=== PATIENT | female | born 1945 | race Caucasian/White ===

== ENCOUNTER 2017-12-07 19:22 | Inpatient (IN) ==
[2017-12-07] MEDS: HYDROmorphone 2 MG/ML VIAL IV PRN ×2 (20:26→20:50)
[2017-12-07 20:45] LABS: Basophils # (Auto) 0 K/mcL (0.0-0.3); Basophils % (Auto) 0.5 % (0.0-2.0); Eosinophils # (Auto) 0.7 K/mcL (0.0-0.7); Eosinophils % (Auto) 7.4 % (0.0-7.0); Lymphocytes # (Auto) 2.5 K/mcL (1.5-4.8); Lymphocytes % (Auto) 26.4 % (15.5-49.0); Mean Cell Volume 96.6 fL (80.0-100.0); Mean Corpuscular HGB Conc 34.2 g/dL (31.0-36.0); Mean Corpuscular Hemoglobin 33.1 pg (26.0-34.0); Monocytes # (Auto) 0.8 K/mcL (0.1-0.9); Monocytes % (Auto) 8.7 % (1.0-12.0); Platelet Count 341 K/mcL (140-440); RBC 3.58 M/mcL (4.00-5.20); Red Cell Distribution Width 13.5 % (11.5-14.5)
--- NOTE | 2017-12-07 20:55 | Emergency Department Note ---
Lower Extremity Injury HPI - General Chief Complaint: Extremity Injury, Lower Stated Complaint: pain in left hip Time Seen by Provider: 12/07/17 19:47 Source: patient Mode of arrival: EMS Limitations: no limitations - History of Present Illness HPI Narrative: 72-year-old female presents from shelter due to poorly controlled pain. She had an x-ray today and they saw a femoral neck fracture. She was requiring pain medication previously and has gotten fentanyl transdermal patch and is also taking morphine for breakthrough pain. She has end-stage dementia and is nonverbal. Family is unsure if they want her to have surgery. She is on Pradaxa for blood clots in her left lower extremity. She has not had any documented falls. They are here for pain control and to see if she needs surgery if that will help. The patient is moving her right leg but not her left - Related Data Home Medications Medication Instructions Recorded Confirmed acetaminophen 325 mg tablet See Label Instructions PO .COMPLEX 02/17/17 02/17/17 dabigatran etexilate 150 mg capsule 150 mg PO BID 02/17/17 02/17/17 multivitamin chewable tablet 2 tab PO QDAY 02/17/17 02/17/17 Previous Rx's Medication Instructions Recorded docusate sodium 100 mg capsule 100 mg PO QDAY PRN #30 cap 11/05/15 albuterol sulfate 90 mcg/actuation 90 mcg INHALATION Q6H PRN #60 puff 02/01/16 breath activated powder inhaler trazodone 50 mg tablet 50 mg PO QHS #30 tab 09/29/16 citalopram 20 mg tablet 20 mg PO QDAY #30 tab 10/10/16 donepezil 10 mg tablet 10 mg PO QHS #30 tab 10/10/16 levothyroxine 75 mcg tablet 75 mcg PO QDAY #30 tab 10/10/16 memantine 10 mg tablet 10 mg PO BID #60 tab 10/10/16 losartan 100 1 tab PO QDAY #30 tab 10/17/16 mg-hydrochlorothiazide 25 mg tablet aspirin 81 mg tablet,delayed 81 mg PO QDAY #30 tab 11/15/16 release buspirone 10 mg tablet 10 mg PO BID #60 tab 11/16/16 omeprazole 20 mg capsule,delayed 20 mg PO BID #60 cap 02/13/17 release ATILIO stockings #2 each 02/17/17 risperidone 2 mg tablet 1 mg PO TID #45 tab 02/17/17 quetiapine 50 mg tablet 50 mg PO .COMPLEX #90 tab 02/20/17 baclofen 20 mg tablet 10 mg PO BID #60 tab 04/13/17 quetiapine 100 mg tablet 100 mg PO .COMPLEX #30 tab 07/06/17 polyethylene glycol 3350 17 See Label Instructions PO QDAY 08/01/17 gram/dose oral powder #527 g alprazolam 0.5 mg tablet 0.5 mg PO TID PRN #90 tab 09/12/17 tramadol 50 mg tablet 50 mg PO Q6H #120 tab 10/19/17 lorazepam 0.5 mg tablet 0.5 mg PO QHS PRN #14 tab 11/21/17 lorazepam 1 mg tablet 1 mg PO BID #60 tab 12/05/17 Allergies Allergy/AdvReac Type Severity Reaction Status Date / Time Amoxicillin [From Augmentin] Allergy Unknown Nausea Verified 12/07/17 19:25 clavulanic acid Allergy Unknown Nausea Verified 12/07/17 19:25 [From Augmentin] Penicillins Allergy Unknown Unknown Verified 12/07/17 19:25 Review of Systems All systems ED: reviewed and negative except as stated. 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 I do not want to move this due to her pain. No significant swelling of the lower extremity. Limitations: no limitations General appearance: other (nonverbal, uncomfortable, no distress) Head: atraumatic Eye: Present: normal appearance. Absent: conjunctival injection Neck: Present: normal inspection, full ROM Chest: Present: normal inspection, symmetric chest wall rise Respiratory: Present: normal lung sounds bilaterally Cardiovascular: Present: regular rate, normal heart sounds Abdominal: Present: soft, normal bowel sounds. Absent: tenderness Neurological: Present: alert, oriented X3 Psychiatric: Present: normal affect, normal mood Skin: Present: warm, dry, intact Course Course Narrative: Family still does not know if they want surgery or to make her comfort measures only. She will be admitted. Dr. Alvarez was consulted Vital Signs Temperature 98.5 F 12/07/17 19:23 Pulse Rate 91 H 12/07/17 19:23 Respiratory Rate 20 12/07/17 19:23 Blood Pressure 142/92 12/07/17 19:23 Pulse Oximetry (%) 94 12/07/17 19:23 Temperature 98.5 F 12/07/17 19:23 Pulse Rate 91 H 12/07/17 19:23 Respiratory Rate 20 12/07/17 19:23 Blood Pressure 142/92 12/07/17 19:23 Pulse Oximetry (%) 94 12/07/17 19:23 Extremity Injury, Lower - Lab Data Result diagrams: 12/07/17 20:06 12/07/17 20:06 Lab Results 12/07/17 12/07/17 Range/Units 20:06 20:06 WBC 9.3 (4.5-11.0) K/mcL RBC 3.58 L (4.00-5.20) M/mcL Hgb 11.9 L (12.0-15.0) g/dL Hct 34.6 L (36.0-48.0) % MCV 96.6 (80.0-100.0) fL MCH 33.1 (26.0-34.0) pg MCHC 34.2 (31.0-36.0) g/dL RDW 13.5 (11.5-14.5) % Plt Count 341 (140-440) K/mcL MPV 8.1 (7.4-10.4) fL Gran % 57.0 (38.0-78.0) % Lymph % (Auto) 26.4 (15.5-49.0) % [place] % (Auto) 8.7 (1.0-12.0) % Eos % (Auto) 7.4 H (0.0-7.0) % Baso % (Auto) 0.5 (0.0-2.0) % Gran # 5.3 (1.8-8.0) K/mcL Lymph # (Auto) 2.5 (1.5-4.8) K/mcL [place] # (Auto) 0.8 (0.1-0.9) K/mcL Eos # (Auto) 0.7 (0.0-0.7) K/mcL Baso # (Auto) 0 (0.0-0.3) K/mcL Sodium 144 (133-145) mmol/L Potassium 3.7 (3.3-5.1) mmol/L Chloride 103 (96-108) mmol/L Carbon Dioxide 26 (22-30) mmol/L Anion Gap 15.0 (8-16) BUN 17 (8-23) mg/dl Creatinine 1.0 (0.6-1.1) mg/dl GFR Calculation 57 Glucose 99 (70-105) mg/dL Calcium 9.6 (8.6-10.4) mg/dl Total Bilirubin 0.4 (0.0-1.0) mg/dL AST 12 (0-37) U/l ALT 8 (0-40) U/l Alkaline Phosphatase 94 (39-117) U/L Total Protein 6.8 (5.9-8.4) gm/dL Albumin 3.7 (3.2-5.2) gm/dL Globulin 3.1 (2.2-3.7) gm/dL Albumin/Globulin Ratio 1.2 (1.0-2.3) Disposition Pt seen by [facility]ETERINARIAN/PA only: Yes Clinical Impression: Hip fracture Disposition: Xfer As Inpt ([facility]) Condition: Fair Referrals: Heladio Diaz MD [Primary Care Provider] -
[2017-12-07 21:03] LABS: ALT/SGPT 8 U/l (0-40); Albumin 3.7 gm/dL (3.2-5.2); Albumin/Globulin Ratio 1.2 (1.0-2.3); Alkaline Phosphatase 94 U/L (39-117); Blood Urea Nitrogen 17 mg/dl (8-23)
[2017-12-07 22:16] LABS: Appearance,Urine CLOUDY; Bacteria,Urine FEW /hpf (0); Bilirubin,Urine NEG (NEG); Color,Urine YELLOW; Glucose,Urine (UA) NEGATIVE (NEG); Leukocyte Esterase,Urine 75 /uL (NEG); Mucus,Urine FEW /hpf (0); Protein,Urine NEG (NEG); Specific Gravity,Urine 1.013 (1.000-1.035); Urine Amorphous Crystals MOD /hpf (0); Urine Blood NEG mg/dL (<0.03); Urine Hyaline Cast 1 /lpf (0-2); Urine RBC 3 /hpf (0-1); Urine Squamous Epithelial Cell 8 /hpf (0-4); Urine Transitional Epi Cells 1 /hpf (0-2); Urine WBC 22 /hpf (0-4); Urobilinogen,Urine NEG (NEG)
--- NOTE | 2017-12-07 22:25 | Internal Med History&Physical ---
Medical - H&P: HPI Patient information: Note initiated : 12/07/17 at 10:24 pm Service Date, if different from initiated Date: [] Patient: Heather Ac a 72 y/o F admitted on for pain in left hip. Chief Complaint: [] History of present illness: Ms. Ac is a 72 year old Femael with h/o dementia, on comfort care, presents ot the ER for NH, Pt demented, obtunded, unable to provide any history Pt son and daughter are present at the bedside, they provided most of the history, the patient has been a prison resident, for dementia. She was on multiple medications for behavioral control in the past. Most of the medications were stopped according to the children. The patient's mental status improved after the medications were stopped. However she still had poor memory, and the poor quality of life. 3 months ago the patient has been walking with a limp onto the left side. or the last 2 months, patient has not been moving much. The patient has been in severe pain over the last 2 weeks, this pain has worsened over the period of one week. When the family saw the patient in distress they brought her to the emergency. in the emergency patient's vital signs were stable, blood work unremarkable, patient UA is abnormal suggestive or UTI. X-ray shows displaced hip fracture. Patient's family son and daughter are not sure if they want to pursue surgery. Patient is bedbound, and they are anticipating that the patient will pass away very soon. Patient needs good pain control. They will talk with the surgeon tomorrow and contemplative they would like to proceed with the procedure for pain management purposes. ROS unobtainable: due to mental status Medical - H&P: PMH Medical history: Medical History Adverse reaction to drug (Acute) Squamous cell carcinoma of skin (Chronic) Osteoarthrosis involving multiple sites (Chronic) Cognitive impairment, mild, so stated (Chronic 06/14/12) Postmenopausal related mood disorder (Chronic) Hypothyroidism, acquired (Chronic) Hypertension, essential (Chronic) Depressive disorder (Chronic) Dementia, presenile with depression (Chronic 12/10/12) History of colonic polyps (Chronic) Benign neoplasm of colon (Chronic) Breast cancer (Chronic) Fibroadenosis of breast (Chronic) Asthma (Chronic) Allergic rhinitis (Chronic) Accident (Resolved) Personal history of breast cancer (Resolved) Surgical history: Past Surgical History History of adenoidectomy (Resolved) History of appendectomy (Resolved) History of breast surgery (Resolved) History of colonic polyps (Resolved) History of colonoscopy (Resolved 07/10/13) History of hysterectomy (Resolved) History of left breast biopsy (Resolved 01/14/15) History of nasal surgery (Resolved) History of tonsillectomy (Resolved) History of tubal ligation (Resolved) S/P thyroid biopsy (Resolved) Status post biopsy of skin (Resolved) Pertinent family history: Family History Daughter Celiac disease Mother Family history of diabetes mellitus Unknown Ischemic heart disease Father Major depressive disorder Brother Major depressive disorder Medical - H&P: Meds Home Medications Medication Instructions Recorded Confirmed Type docusate sodium 100 mg capsule 100 mg PO QDAY PRN #30 cap 11/05/15 02/17/17 Rx albuterol sulfate 90 mcg/actuation 90 mcg INHALATION Q6H PRN #60 puff 02/01/16 02/17/17 Rx breath activated powder inhaler trazodone 50 mg tablet 50 mg PO QHS #30 tab 09/29/16 02/17/17 Rx citalopram 20 mg tablet 20 mg PO QDAY #30 tab 10/10/16 02/17/17 Rx donepezil 10 mg tablet 10 mg PO QHS #30 tab 10/10/16 02/17/17 Rx levothyroxine 75 mcg tablet 75 mcg PO QDAY #30 tab 10/10/16 02/17/17 Rx memantine 10 mg tablet 10 mg PO BID #60 tab 10/10/16 02/17/17 Rx losartan 100 1 tab PO QDAY #30 tab 10/17/16 02/17/17 Rx mg-hydrochlorothiazide 25 mg tablet aspirin 81 mg tablet,delayed 81 mg PO QDAY #30 tab 11/15/16 02/17/17 Rx release buspirone 10 mg tablet 10 mg PO BID #60 tab 11/16/16 02/17/17 Rx omeprazole 20 mg capsule,delayed 20 mg PO BID #60 cap 02/13/17 02/17/17 Rx release ATILIO stockings #2 each 02/17/17 02/17/17 Rx acetaminophen 325 mg tablet See Label Instructions PO .COMPLEX 02/17/17 History dabigatran etexilate 150 mg capsule 150 mg PO BID 02/17/17 02/17/17 History multivitamin chewable tablet 2 tab PO QDAY 02/17/17 02/17/17 History risperidone 2 mg tablet 1 mg PO TID #45 tab 02/17/17 02/17/17 Rx quetiapine 50 mg tablet 50 mg PO .COMPLEX #90 tab 02/20/17 Rx baclofen 20 mg tablet 10 mg PO BID #60 tab 04/13/17 Rx quetiapine 100 mg tablet 100 mg PO .COMPLEX #30 tab 07/06/17 Rx polyethylene glycol 3350 17 See Label Instructions PO QDAY 08/01/17 Rx gram/dose oral powder #527 g alprazolam 0.5 mg tablet 0.5 mg PO TID PRN #90 tab 09/12/17 Rx tramadol 50 mg tablet 50 mg PO Q6H #120 tab 10/19/17 Rx lorazepam 0.5 mg tablet 0.5 mg PO QHS PRN #14 tab 11/21/17 Rx lorazepam 1 mg tablet 1 mg PO BID #60 tab 12/05/17 Rx Allergies Allergy/AdvReac Type Severity Reaction Status Date / Time Amoxicillin [From Augmentin] Allergy Unknown Nausea Verified 12/07/17 19:25 clavulanic acid Allergy Unknown Nausea Verified 12/07/17 19:25 [From Augmentin] Penicillins Allergy Unknown Unknown Verified 12/07/17 19:25 Medical - H&P: Exam - Constitutional Vitals: Temp Pulse Resp BP Pulse Ox 98.5 F 91 H 20 142/92 94 12/07/17 19:23 12/07/17 19:23 12/07/17 19:23 12/07/17 19:23 12/07/17 19:23 Exam: Constitutional; Afebrile, sleepyi, frail old lady, Eyes- No icterus, , No periorbital swelling Ears- Ext ear normal, Neck- Midline trachea, supple Respiratory system: Air Entry equal on both sides, No crackles or wheezing, no rhonchi. ant exam only CVS- Rate rhythm regular, S1,S2 heard, no gallop, no rub. 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 Medical - H&P: Reslt - Labs CBC & Chem 7: 12/07/17 20:06 12/07/17 20:06 Labs: Short CBC 12/07/17 Range/Units 20:06 WBC 9.3 (4.5-11.0) K/mcL Hgb 11.9 L (12.0-15.0) g/dL Hct 34.6 L (36.0-48.0) % Plt Count 341 (140-440) K/mcL BMP 12/07/17 20:06 Sodium 144 Potassium 3.7 Chloride 103 Carbon Dioxide 26 BUN 17 Creatinine 1.0 Glucose 99 Calcium 9.6 Liver Function 12/07/17 Range/Units 20:06 Total Bilirubin 0.4 (0.0-1.0) mg/dL AST 12 (0-37) U/l ALT 8 (0-40) U/l Alkaline Phosphatase 94 (39-117) U/L Albumin 3.7 (3.2-5.2) gm/dL Urine 12/07/17 Range/Units 21:27 Urine Color Yellow Urine Appearance Cloudy Urine pH 7.0 (5.0-9.0) Ur Specific Lissie 1.013 (1.000-1.035) Urine Protein Neg (NEG) mg/dL Urine Glucose (UA) Negative (NEG) mg/dL Medical - H&P: A/P - Narrative A/P Narrative: A/P Hip fracture- not sure if acute or chr, ortho to evaluate Uncontrolled pain, Pain management: Failure to respond to outpatient, admit for pain controk may need sx to help. But doublt if this will be useful. Patient may not survive surgery, and the pain management post op, she is not canddiate for rehab post op. will let the patients family discuss with surgeon in AM Pre op assesstment: Very high risk for mortality in the francisca op period. Dementia: Off all meds for now, as it was making he very confused/ drowsy Comfort care goals: Plan to keep pt comfort care, no uncnessary labs, hold off on all unnecessary medications at this time, just comfort care goals. Patients family is ok with this plan. They are aware that the patient may pass away tonight or during this hospital stay dvt hep sq diet npo Social History - Tobacco smoking status: Current every day smoker
[2017-12-07] MEDS ORDERED: HYDROmorphone 2 MG/ML VIAL IV PRN (22:48)
[2017-12-07] MEDS ORDERED: ALBUTEROL SULFATE 2.5 MG/3 ML NEBULIZER NEB PRN (22:48)
[2017-12-07] MEDS ORDERED: ONDANSETRON 4 MG/2 ML VIAL IV PRN (22:48)
[2017-12-07] MEDS ORDERED: POTASSIUM CHLORIDE 20 MEQ in DEXTROSE 5%-1/2NS 1,000 ML IV SCH (22:48)
[2017-12-07] MEDS ORDERED: cefTRIAXone 1 GM VIAL ONE (22:57)
[2017-12-07] MEDS: cefTRIAXone 1 GM VIAL IV SCH (23:17)
[2017-12-08] MEDS ORDERED: HYDROmorphone 2 MG/ML VIAL ONE ×2 (02:38→04:45)
[2017-12-08] MEDS: 0.9 % SODIUM CHLORIDE 10 ML SYRINGE IV SCH ×3 (05:45→21:35)
[2017-12-08] MEDS ORDERED: METHOCARBAMOL 1,000 MG/10 ML VIAL IV PRN ×3 (06:10→16:37)
[2017-12-08] MEDS ORDERED: METHOCARBAMOL 1,000 MG/10 ML VIAL ONE (06:12)
[2017-12-08] MEDS ORDERED: METHOCARBAMOL 1,000 MG/10 ML VIAL IV ONE (06:44)
--- NOTE | 2017-12-08 07:39 | Consultation ---
DATE OF CONSULTATION: 12/07/2017 IDENTIFICATION: The patient is a 72-year-old female. CHIEF COMPLAINT: Left hip pain secondary to fracture. HISTORY: The patient has been walking with a limp over the last 3 months and her walking has become less and less. Over the last 2 weeks she has had marked increase in pain. She presented to the Emergency Room where a left hip fracture has been shown radiographically. She presently is in bed. She does have pain with any motion. She is not moving. She is generally comfortable. She has been severely demented and minimally active. PAST MEDICAL HISTORY: Significant for severe Alzheimer's. She has a history of hypothyroidism, hypertension, breast cancer, and asthma. PAST SURGICAL HISTORY: She has had multiple surgeries as noted on her history and physical. MEDICATIONS: Multiple and are noted on the intake questionnaire. PHYSICAL EXAMINATION: GENERAL: She is resting comfortably. She does awaken and seems to be somewhat anxious, may be in some modest discomfort when she awakens from sleep and does have pain with range of motion of this hip. If she is just resting without any movement, she seems comfortable but seems somewhat anxious just upon awakening. HEAD: Normocephalic, atraumatic. EYES: PERRLA. Conjunctivae clear. ENT: Within normal limits. NECK: Supple without pain on range of motion. HEART: Regular. LUNGS: Clear. ABDOMEN: Benign. IMAGING: Radiographs demonstrate a femoral neck fracture which is significantly displaced. IMPRESSION: Femoral neck fracture with marked displacement. This clearly represents a complex situation in that she is severely demented and minimally ambulatory. She has generally been on comfort care measures. I would generally argue that if someone is ambulatory and active at a care center that it is reasonable to go ahead and fix a hip fracture such as this, even in the face of severe dementia but if they are really nonambulatory and have the severe dementia it may be not unreasonable to manage this without surgical intervention. PLAN: I will discuss this at length with family and certainly respect their wishes. SELINA:martínez Job ID: [id number] Doc ID: [id number] Keny Alvarez MD
[2017-12-08] MEDS: HYDROmorphone 2 MG/ML VIAL IV PRN ×2 (07:56→09:17)
--- NOTE | 2017-12-08 08:31 | XRay Report ---
HISTORY: Reason for Exam:hip fracture FINDINGS: There is a transverse fracture through the femoral neck. The shaft of the femur is retracted upward. This does not appear to be an acute fracture. No callus has formed. The hip joint space is normal in width and alignment. No other fracture is present. IMPRESSION: Subacute fracture of the left femoral neck Interpreted and Authenticated by: Rj Johnson 12/08/17
[2017-12-08] MEDS: cefTRIAXone 1 GM VIAL IV SCH (09:18)
[2017-12-08] MEDS: HEPARIN 5,000 UNIT/ML VIAL SQ SCH ×2 (09:19→10:05)
[2017-12-08] MEDS ORDERED: LORazepam 2 MG/ML VIAL IV PRN (09:28)
[2017-12-08] MEDS ORDERED: DIAZEPAM 10 MG/2 ML SYRINGE IV PRN (09:29)
[2017-12-08] MEDS ORDERED: fentaNYL 25 MCG PATCH TOPICAL SCH (10:00)
[2017-12-08] MEDS: LORazepam 2 MG/ML VIAL IV PRN ×6 (10:06→20:44)
[2017-12-08] MEDS ORDERED: DEXTROSE 5%-1/2NS W/20MEQ KCL 1,000 ML IV ONE (12:30)
[2017-12-08] MEDS ORDERED: POTASSIUM CHLORIDE 40 MEQ in DEXTROSE 5% IN WATER 500 ML IV PRN ×2 (14:59→17:45)
[2017-12-08] MEDS ORDERED: MAGNESIUM SULFATE 2 GM/50 ML BAG IV PRN ×2 (14:59→17:45)
[2017-12-08] MEDS ORDERED: ROCURONIUM 10 MG/ML ML IV ONE (15:40)
[2017-12-08] MEDS ORDERED: PHENYLEPHRINE 10 MG/ML VIAL IV ONE (15:40)
[2017-12-08] MEDS ORDERED: DEXAMETHASONE 10 MG/ML VIAL IV ONE (15:40)
[2017-12-08] MEDS ORDERED: ceFAZolin 1 GM VIAL IV ONE (15:40)
[2017-12-08] MEDS ORDERED: NEOSTIGMINE 1 MG/ML VIAL IV ONE (15:40)
[2017-12-08] MEDS ORDERED: TRANEXAMIC ACID 1,000 MG/10 ML VIAL IV ONE (15:40)
[2017-12-08] MEDS ORDERED: fentaNYL 100 MCG/2 ML VIAL IV ONE (15:40)
[2017-12-08] MEDS ORDERED: GLYCOPYRROLATE 0.2 MG/ML VIAL IV ONE (15:40)
--- NOTE | 2017-12-08 16:26 | Internal Med Progress Note ---
Medical - PN: Subj Patient information: Note initiated : 12/08/17 at 4:16 pm Service Date, if different from initiated Date: [] Patient: Heather Ac a 72 y/o F admitted on 12/07/17 for Pain in Left Hip/Hip Fracture. Chief Complaint: [] Interval history: Ms. Ac is a 72 year old Femael with h/o dementia, on comfort care, presents ot the ER for NH, Pt demented, obtunded, unable to provide any history Pt son and daughter are present at the bedside, they provided most of the history, the patient has been a [facility] resident, for dementia. She was on multiple medications for behavioral control in the past. Most of the medications were stopped according to the children. The patient's mental status improved after the medications were stopped. However she still had poor memory, and the poor quality of life. 3 months ago the patient has been walking with a limp onto the left side. or the last 2 months, patient has not been moving much. The patient has been in severe pain over the last 2 weeks, this pain has worsened over the period of one week. When the family saw the patient in distress they brought her to the emergency. in the emergency patient's vital signs were stable, blood work unremarkable, patient UA is abnormal suggestive or UTI. X-ray shows displaced hip fracture. Patient's family son and daughter are not sure if they want to pursue surgery. Patient is bedbound, and they are anticipating that the patient will pass away very soon. Patient needs good pain control. They will talk with the surgeon tomorrow and contemplative they would like to proceed with the procedure for pain management purposes. december 08 Pt seen examined, this AM noted to be in some distress, spasms family seems to have decided to persue surgery for palliative purposes very high risk for periop mortality continue morphine and ativan , methacarbamol for pain, anxiety and muscle spams surgery planned this pm with dr alejandra Pertinent ROS: unable. - Constitutional Vitals: Vital Signs Temp Pulse Resp BP Pulse Ox 97.8 F 61 16 107/69 95 12/08/17 12:00 12/08/17 12:00 12/08/17 12:00 12/08/17 12:00 12/08/17 14:00 Period Temp Pulse Resp BP Sys/Leonard Pulse Ox Last 24 Hr 97.8 F-98.9 F 61-91 16-20 107-158/69-92 94-97 Intake and Output 12/08/17 12/08/17 12/08/17 05:59 13:59 21:59 Output Total 275 / 275 300 / 300 Balance -275 / -275 -300 / -300 Weight 120 lb Intake & Output: Intake & Output 12/08/17 12/08/17 12/08/17 05:59 13:59 21:59 Output Total 275 / 275 300 / 300 Balance -275 / -275 -300 / -300 Weight 120 lb Output: Urine Catheter Amount 275 / 275 300 / 300 Exam: Constitutional; Afebrile, in mild distress from pain, Eyes- No icterus, , No periorbital swelling Neck- Midline trachea, supple Respiratory system: Air Entry equal on both sides, No crackles or wheezing, no rhonchi. CVS- Rate rhythm regular, S1,S2 heard, no gallop, no rub. 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 Medical - PN: Obj Da - Labs CBC & Chem 7: 12/07/17 20:06 12/07/17 20:06 Labs: Abnormal Lab Results 12/08/17 12/07/17 12/07/17 12:48 21:27 20:06 RBC 3.58 L Hgb 11.9 L Hct 34.6 L Eos % (Auto) 7.4 H POC PT 18.3 H POC INR 1.6 H Ur Leukocyte Esterase 75 A Urine RBC 3 H Urine WBC 22 H Ur Squamous Epith Cells 8 H Amorphous Crystals Mod A Urine Bacteria Few A Meds: Medications Albuterol Sulfate (Ventolin) 2.5 mg NEB Q2HP PRN PRN Reason: Shortness Of Breath Ceftriaxone Sodium (Rocephin) 1 gm IV Q24H [facility] Last Admin: 12/08/17 09:18 Dose: 1 gm Fentanyl (Duragesic) 25 mcg TOPICAL Q72H [facility] Last Admin: 12/08/17 09:42 Dose: 25 mcg Heparin Sodium (Porcine) (Heparin) 5,000 unit SQ Q12 [facility] Last Admin: 12/08/17 10:05 Dose: Not Given Potassium Chloride/Dextrose/Sod Cl (Dextrose 5%-1/2ns W/20meq Kcl) 1,000 mls @ 75 mls/hr IV ONCE ONE Stop: 12/09/17 01:49 Last Admin: 12/08/17 11:28 Dose: 75 mls/hr Potassium Chloride 40 meq/ (Dextrose) 520 mls @ 130 mls/hr IV UD PRN PRN Reason: K+ = or < 3.5 Magnesium Sulfate (Magnesium Sulfate) 2 gm in 50 mls @ 50 mls/hr IV UD PRN PRN Reason: Mag < or = 1.7 Lorazepam (Ativan) 1 - 2 mg IV Q2HP PRN PRN Reason: Anxiety/Spasms. Last Admin: 12/08/17 15:03 Dose: 1 mg Methocarbamol (Robaxin) 750 mg IV Q6HP PRN PRN Reason: Muscle Spasm Last Admin: 12/08/17 13:08 Dose: 750 mg Morphine Sulfate (Morphine) 4 mg IV Q1HP PRN PRN Reason: pain/ anxiety Last Admin: 12/08/17 12:59 Dose: 4 mg Ondansetron HCl (Zofran) 4 mg IV Q6HP PRN PRN Reason: Nausea And Vomiting Sodium Chloride (Saline Flush) 10 ml IV Q8 [facility] Last Admin: 12/08/17 15:16 Dose: Not Given Medical - PN: A/P - Time Spent With Patient Total time spent is greater than 50% in coordination of care (as documented) at patient's floor/unit and/or counseling patient: - Narrative A/P Narrative: A/P Hip fracture- not sure if acute or chr, ortho to evaluate Uncontrolled pain, Pain management:Pt family plans to persue surgery in this patient, doubt if it will help with pain management in any reasonable way as pt will still need high doses of narcotics for pain control. But its possible it may help if patient survives the immediate post op period Pre op assesstment: Very high risk for mortality in the francisca op period. Dementia: Off all meds for now, as it was making he very confused/ drowsy Comfort care goals: Plan to keep pt comfort care, no uncnessary labs, hold off on all unnecessary medications at this time, just comfort care goals. Patients family is ok with this plan. They are aware that the patient may pass away during this hospital stay. IV morphine and ativan for pain management, increase dose of fentanyl to 25mcg dvt none, given palliative goals and no need to poke patient diet npo
[2017-12-08] MEDS ORDERED: GENTAMICIN SULFATE 800 MG/20 ML VIAL IR ONE (16:36)
[2017-12-08] MEDS ORDERED: ePHEDrine 50 MG/ML AMPUL IV PRN (16:37)
[2017-12-08] MEDS ORDERED: ACETAMINOPHEN 1,000 MG/100 ML BOTTLE IV ONE (16:37)
[2017-12-08] MEDS ORDERED: NALOXONE HCL 0.4 MG/ML VIAL IV PRN (16:37)
[2017-12-08] MEDS ORDERED: IPRATROPIUM/ALBUTEROL 3 ML AMPUL.NEB NEB PRN (16:37)
[2017-12-08] MEDS ORDERED: FLUMAZENIL 0.1 MG/ML ML IV PRN (16:37)
[2017-12-08] MEDS ORDERED: HYDROmorphone 2 MG/ML VIAL IV PRN (16:37)
[2017-12-08] MEDS ORDERED: MEPERIDINE 25 MG/ML SYRINGE IV PRN (16:37)
[2017-12-08] MEDS ORDERED: diphenhydrAMINE 50 MG/ML VIAL IV PRN (16:37)
[2017-12-08] MEDS ORDERED: ONDANSETRON 4 MG/2 ML VIAL IV PRN ×2 (16:37→17:45)
[2017-12-08] MEDS ORDERED: ATROPINE SULFATE 0.4 MG/ML VIAL IV PRN (16:37)
[2017-12-08] MEDS ORDERED: METOPROLOL TARTRATE 5 MG/5 ML VIAL IV PRN (16:37)
[2017-12-08] MEDS ORDERED: DIAZEPAM 2 MG TABLET PO PRN (16:43)
--- NOTE | 2017-12-08 16:45 | Brief Operative Note ---
Date of procedure: 12/08/17 Pre-op diagnosis: L hip fracture Post-op diagnosis: same Procedure: hemiarthroplasty Grafts/Implants: Yes (depuy) Anesthesia: GETA Complications: none Surgeon: Keny Alvarez Hand Wood Sander: Woodrow Carter Estimated blood loss (cc): 75 Specimens Removed/Pathology: none sent Condition: stable
[2017-12-08] MEDS: fentaNYL 100 MCG/2 ML VIAL IV PRN ×2 (17:22→17:31)
[2017-12-08] MEDS ORDERED: ALBUTEROL SULFATE 2.5 MG/3 ML NEBULIZER NEB PRN (17:45)
[2017-12-08] MEDS ORDERED: BISACODYL 10 MG SUPP.RECT PR ONE (19:43)
[2017-12-08] MEDS ORDERED: BISACODYL 10 MG SUPP.RECT PR PRN (21:00)
[2017-12-09] MEDS: METHOCARBAMOL 1,000 MG/10 ML VIAL IV PRN ×3 (01:11→15:07)
[2017-12-09] MEDS: LORazepam 2 MG/ML VIAL IV PRN ×7 (01:30→20:02)
[2017-12-09] MEDS: 0.9 % SODIUM CHLORIDE 10 ML SYRINGE IV SCH ×2 (06:06→15:08)
--- NOTE | 2017-12-09 07:45 | Orthopedic Progress Note ---
Subjective Patient information: Note initiated : 12/09/17 at 7:43 am Service Date, if different from initiated Date: [] Patient: Heather Ac 72 y/o F admitted on 12/07/17 for Pain in Left Hip/Hip Fracture. Chief Complaint: [S/P left hip hemiarthroplasty] Patient is currently moaning intermittently while laying supine in bed. HPI is limited due to her advanced dementia and inability to respond to verbal commands. Principal diagnosis: Left femoral neck fx Objective Vital signs: Vital Signs Temp Pulse Resp BP Pulse Ox 12/09/17 07:17 96 12/08/17 23:00 60 16 93 12/08/17 22:00 95 12/08/17 18:30 97 12/08/17 18:00 97 12/08/17 17:41 97.4 F 76 18 169/86 100 12/08/17 17:34 76 13 164/80 100 12/08/17 17:29 79 13 158/78 100 12/08/17 17:24 73 18 170/92 100 12/08/17 17:19 69 17 159/81 100 12/08/17 17:14 55 L 17 160/87 100 12/08/17 17:09 97.3 F 58 L 18 163/93 100 12/08/17 14:00 95 12/08/17 12:00 97.8 F 61 16 107/69 95 Intake and Output 12/08/17 12/09/17 12/09/17 21:59 05:59 13:59 Intake Total 2500 / 2500 Output Total 650 / 650 625 / 625 Balance 1850 / 1850 -625 / -625 Intake: IV 2500 / 2500 Output: Drainage 50 / 50 Left Hip 50 / 50 Urine Catheter Amount 650 / 650 575 / 575 Intake & Output: Intake & Output 12/08/17 12/09/17 12/09/17 21:59 05:59 13:59 Intake Total 2500 / 2500 Output Total 650 / 650 625 / 625 Balance 1850 / 1850 -625 / -625 Intake: IV 2500 / 2500 Output: Drainage 50 / 50 Left Hip 50 / 50 Urine Catheter Amount 650 / 650 575 / 575 Incision: Yes healing, Yes clean and dry Incision clean and dry: Yes Dressing: Yes clean, Yes dry, Yes intact Weight bearing status: non Neurological exam IM: Yes motor sensory intact, Yes neurovascular intact Additional Comments: Patient is not alert and oriented. She is non-verbal secondary to advanced dementia. Extremities exam IM: Yes neurovascular intact Additional Comments: Negative Johnnie's bilaterally. - Labs CBC & BMP: 12/07/17 20:06 12/07/17 20:06 Labs: Orthopedic Labs 12/08/17 12:48 POC PT 18.3 H POC INR 1.6 H 12/07/17 20:06 Hgb 11.9 L Hct 34.6 L Assessment and Plan (1) Hip fracture D/c drain tomorrow am. She may be weight-bearing as tolerated though she is non- ambulatory. Consult social work instructor for regarding discharge destination. May be discharged per hospitalist when ready (likely 1-2 days). Dress wound with aquacel prior to discharge. Status: Acute
[2017-12-09 08:11] LABS: ALT/SGPT 8 U/l (0-40); Albumin/Globulin Ratio 1.1 (1.0-2.3); Alkaline Phosphatase 78 U/L (39-117); Bilirubin,Direct < 0.2 mg/dL (0.0-0.3); Blood Urea Nitrogen 14 mg/dl (8-23); Gamma Glutamyl Transpeptidase 6 U/L (5-36); Uric Acid 4.7 mg/dL (2.5-8.0)
--- NOTE | 2017-12-09 09:17 | XRay Report ---
HISTORY: Reason for Exam:post op left hip dmitriy arthroplasty FINDINGS: There is a well-positioned hemiarthroplasty in the left hip. The femoral head and neck have been resected. No new fracture has developed. There are no abnormal soft tissue calcifications around the joint. IMPRESSION: Well-positioned left hip prosthesis Interpreted and Authenticated by: Rj Johnson 12/09/17
[2017-12-09] MEDS: cefTRIAXone 1 GM VIAL IV SCH (09:31)
--- NOTE | 2017-12-09 11:36 | Internal Med Progress Note ---
Medical - PN: Subj Patient information: Note initiated : 12/09/17 at 11:34 am Service Date, if different from initiated Date: [] Patient: Heather Ac a 72 y/o F admitted on 12/07/17 for Pain in Left Hip/Hip Fracture. Chief Complaint: [] Interval history: Ms. Ac is a 72 year old Femael with h/o dementia, on comfort care, presents ot the ER for NH, Pt demented, obtunded, unable to provide any history Pt son and daughter are present at the bedside, they provided most of the history, the patient has been a [facility] resident, for dementia. She was on multiple medications for behavioral control in the past. Most of the medications were stopped according to the children. The patient's mental status improved after the medications were stopped. However she still had poor memory, and the poor quality of life. 3 months ago the patient has been walking with a limp onto the left side. or the last 2 months, patient has not been moving much. The patient has been in severe pain over the last 2 weeks, this pain has worsened over the period of one week. When the family saw the patient in distress they brought her to the emergency. in the emergency patient's vital signs were stable, blood work unremarkable, patient UA is abnormal suggestive or UTI. X-ray shows displaced hip fracture. Patient's family son and daughter are not sure if they want to pursue surgery. Patient is bedbound, and they are anticipating that the patient will pass away very soon. Patient needs good pain control. They will talk with the surgeon tomorrow and contemplative they would like to proceed with the procedure for pain management purposes. december 08 Pt seen examined, this AM noted to be in some distress, spasms family seems to have decided to persue surgery for palliative purposes very high risk for periop mortality continue morphine and ativan , methacarbamol for pain, anxiety and muscle spams surgery planned this pm with dr alejandra 12/09-patient on comfort care. No overnight events. No significant pain or spasm or concerns per staff and family - Constitutional Vitals: Vital Signs Temp Pulse Resp BP Pulse Ox 97.4 F 60 16 169/86 96 12/08/17 17:41 12/08/17 23:00 12/08/17 23:00 12/08/17 17:41 12/09/17 07:17 Period Temp Pulse Resp BP Sys/Leonard Pulse Ox Last 24 Hr 97.3 F-97.8 F 55-79 13-18 107-170/69-93 93-100 Intake and Output 12/08/17 12/09/17 12/09/17 21:59 05:59 13:59 Intake Total 2500 / 2500 1000 / 1000 Output Total 650 / 650 625 / 625 Balance 1850 / 1850 -625 / -625 1000 / 1000 Intake & Output: Intake & Output 12/08/17 12/09/17 12/09/17 21:59 05:59 13:59 Intake Total 2500 / 2500 1000 / 1000 Output Total 650 / 650 625 / 625 Balance 1850 / 1850 -625 / -625 1000 / 1000 Intake: IV 2500 / 2500 1000 / 1000 Output: Drainage 50 / 50 Left Hip 50 / 50 Urine Catheter Amount 650 / 650 575 / 575 General appearance: no acute distress Exam: exam deferred in light of comfort Medical - PN: Obj Da - Labs CBC & Chem 7: 12/07/17 20:06 12/09/17 05:20 Labs: Abnormal Lab Results 12/09/17 12/08/17 12/07/17 05:20 12:48 21:27 RBC Hgb Hct Eos % (Auto) POC PT 18.3 H POC INR 1.6 H Glucose 113 H Total Protein 5.7 L Albumin 3.0 L Ur Leukocyte Esterase 75 A Urine RBC 3 H Urine WBC 22 H Ur Squamous Epith Cells 8 H Amorphous Crystals Mod A Urine Bacteria Few A 12/07/17 20:06 RBC 3.58 L Hgb 11.9 L Hct 34.6 L Eos % (Auto) 7.4 H POC PT POC INR Glucose Total Protein Albumin Ur Leukocyte Esterase Urine RBC Urine WBC Ur Squamous Epith Cells Amorphous Crystals Urine Bacteria Meds: Medications Albuterol Sulfate (Ventolin) 2.5 mg NEB Q2HP PRN PRN Reason: Shortness Of Breath Bisacodyl (Dulcolax) 10 mg IN HSP PRN PRN Reason: Constipation Ceftriaxone Sodium (Rocephin) 1 gm IV DAILY [facility] Last Admin: 12/09/17 09:31 Dose: 1 gm Diazepam (Valium) 2 mg PO Q4HP PRN PRN Reason: Spasms Fentanyl (Duragesic) 25 mcg TOPICAL Q72H [facility] Potassium Chloride 40 meq/ (Dextrose) 520 mls @ 130 mls/hr IV UD PRN PRN Reason: K+ = or < 3.5 Magnesium Sulfate (Magnesium Sulfate) 2 gm in 50 mls @ 50 mls/hr IV UD PRN PRN Reason: Mag < or = 1.7 Lorazepam (Ativan) 1 - 2 mg IV Q2HP PRN PRN Reason: Anxiety/Spasms. Last Admin: 12/09/17 08:16 Dose: 2 mg Methocarbamol (Robaxin) 750 mg IV Q6HP PRN PRN Reason: Muscle Spasm Last Admin: 12/09/17 07:07 Dose: 750 mg Morphine Sulfate (Morphine) 4 mg IV Q1HP PRN PRN Reason: pain/ anxiety Last Admin: 12/09/17 11:27 Dose: 4 mg Ondansetron HCl (Zofran) 4 mg IV Q6HP PRN PRN Reason: Nausea And Vomiting Sodium Chloride (Saline Flush) 10 ml IV Q8 [facility] Last Admin: 12/09/17 06:06 Dose: 10 ml Medical - PN: A/P - Time Spent With Patient Total time spent is greater than 50% in coordination of care (as documented) at patient's floor/unit and/or counseling patient: 15 - 24 minutes - Narrative A/P Narrative: A/P * Hip fracture- postop day 1 * Dementia: no acute change resting comfortably * Comfort care goals: Plan to keep pt comfort care, Patients family is ok with this plan. They are aware that the patient may pass away during this hospital stay. IV morphine and ativan for pain management, increase dose of fentanyl to 25mcg Plan * continue aggressive pain and symptom management * Palliation
[2017-12-09] MEDS: 0.9 % SODIUM CHLORIDE 1,000 ML IV SCH (19:33)
[2017-12-10] MEDS: LORazepam 2 MG/ML VIAL IV PRN ×5 (01:43→18:46)
[2017-12-10] MEDS: 0.9 % SODIUM CHLORIDE 10 ML SYRINGE IV SCH ×4 (01:45→23:56)
[2017-12-10] MEDS: METHOCARBAMOL 1,000 MG/10 ML VIAL IV PRN ×4 (03:59→23:56)
[2017-12-10 07:22] LABS: ALT/SGPT 6 U/l (0-40); Albumin 3.2 gm/dL (3.2-5.2); Albumin/Globulin Ratio 1.2 (1.0-2.3); Alkaline Phosphatase 78 U/L (39-117); Bilirubin,Direct < 0.2 mg/dL (0.0-0.3); Blood Urea Nitrogen 12 mg/dl (8-23); Gamma Glutamyl Transpeptidase 6 U/L (5-36); Uric Acid 4.7 mg/dL (2.5-8.0)
--- NOTE | 2017-12-10 08:30 | Orthopedic Progress Note ---
Subjective Patient information: Note initiated : 12/10/17 at 8:27 am Service Date, if different from initiated Date: [] Patient: Heather Ac 72 y/o F admitted on 12/07/17 for Pain in Left Hip/Hip Fracture. Chief Complaint: [S/P left hip hemiarthroplasty] Patient appears to be more comfortable than yesterday. She is resting supine in bed. She is remains unresponsive to verbal commands. Therefore, HPI is limited. Principal diagnosis: Left femoral neck fx Objective Vital signs: Vital Signs Pulse Pulse Ox 12/09/17 19:05 98 H 93 12/09/17 10:00 91 Intake and Output 12/09/17 12/10/17 12/10/17 20:59 05:59 13:59 Intake Total Output Total Balance Intake: Oral Output: Drainage Left Hip Urine Catheter Amount Void Amount Intake & Output: Intake & Output 12/09/17 12/10/17 12/10/17 20:59 05:59 13:59 Intake Total Output Total Balance Intake: Oral Output: Drainage Left Hip Urine Catheter Amount Void Amount Incision: Yes healing, Yes clean and dry Incision clean and dry: Yes Dressing: Yes clean, Yes dry, Yes intact Weight bearing status: non Neurological exam IM: Yes motor sensory intact, Yes neurovascular intact Additional Comments: Patient is not alert and oriented secondary to dementia. Extremities exam IM: Yes normal inspection, Yes neurovascular intact Additional Comments: Negative Johnnie's sign bilaterally. - Labs CBC & BMP: 12/07/17 20:06 12/10/17 04:25 Labs: Orthopedic Labs 12/08/17 12:48 POC PT 18.3 H POC INR 1.6 H 12/07/17 20:06 Hgb 11.9 L Hct 34.6 L Assessment and Plan (1) Hip fracture D/c drain today. She may be weight-bearing as tolerated though she is non- ambulatory. Consult renal social worker for regarding discharge destination. May be discharged per hospitalist when ready (likely 1-2 days). Dress wound with aquacel prior to discharge. Status: Acute
[2017-12-10] MEDS: cefTRIAXone 1 GM VIAL IV SCH (09:42)
--- NOTE | 2017-12-10 11:52 | Internal Med Progress Note ---
Medical - PN: Subj Patient information: Note initiated : 12/10/17 at 11:50 am Service Date, if different from initiated Date: [] Patient: Heather Ac a 72 y/o F admitted on 12/07/17 for Pain in Left Hip/Hip Fracture. Chief Complaint: [] Interval history: Ms. Ac is a 72 year old Femael with h/o dementia, on comfort care, presents ot the ER for NH, Pt demented, obtunded, unable to provide any history Pt son and daughter are present at the bedside, they provided most of the history, the patient has been a halfway resident, for dementia. She was on multiple medications for behavioral control in the past. Most of the medications were stopped according to the children. The patient's mental status improved after the medications were stopped. However she still had poor memory, and the poor quality of life. 3 months ago the patient has been walking with a limp onto the left side. or the last 2 months, patient has not been moving much. The patient has been in severe pain over the last 2 weeks, this pain has worsened over the period of one week. When the family saw the patient in distress they brought her to the emergency. in the emergency patient's vital signs were stable, blood work unremarkable, patient UA is abnormal suggestive or UTI. X-ray shows displaced hip fracture. Patient's family son and daughter are not sure if they want to pursue surgery. Patient is bedbound, and they are anticipating that the patient will pass away very soon. Patient needs good pain control. They will talk with the surgeon tomorrow and contemplative they would like to proceed with the procedure for pain management purposes. december 08 Pt seen examined, this AM noted to be in some distress, spasms family seems to have decided to persue surgery for palliative purposes very high risk for periop mortality continue morphine and ativan , methacarbamol for pain, anxiety and muscle spams surgery planned this pm with dr alejandra 12/09-patient on comfort care. No overnight events. No significant pain or spasm or concerns per staff and family 12/10-postoperative day 1. Patient doing well. Pain-free.no overnight events or concerns per staff. No family at bedside. - Constitutional Vitals: Vital Signs Temp Pulse Resp BP Pulse Ox 97.4 F 110 H 26 H 169/86 92 12/08/17 17:41 12/10/17 10:51 12/10/17 10:51 12/08/17 17:41 12/10/17 10:51 Period Temp Pulse Resp BP Sys/Leonard Pulse Ox Last 24 Hr 98-110 26 92-93 Intake and Output 12/09/17 12/10/17 12/10/17 20:59 05:59 13:59 Intake Total Output Total Balance Intake & Output: Intake & Output 12/09/17 12/10/17 12/10/17 20:59 05:59 13:59 Intake Total Output Total Balance Intake: Oral Output: Drainage Left Hip Urine Catheter Amount Void Amount General appearance: no acute distress Exam: exam deferred in light of comfort Medical - PN: Obj Da - Labs CBC & Chem 7: 12/07/17 20:06 12/10/17 04:25 Labs: Abnormal Lab Results 12/10/17 12/09/17 12/08/17 04:25 05:20 12:48 RBC Hgb Hct Eos % (Auto) POC PT 18.3 H POC INR 1.6 H Glucose 113 H Calcium 8.5 L Phosphorus 2.4 L Total Protein 5.7 L Albumin 3.0 L Ur Leukocyte Esterase Urine RBC Urine WBC Ur Squamous Epith Cells Amorphous Crystals Urine Bacteria 12/07/17 12/07/17 21:27 20:06 RBC 3.58 L Hgb 11.9 L Hct 34.6 L Eos % (Auto) 7.4 H POC PT POC INR Glucose Calcium Phosphorus Total Protein Albumin Ur Leukocyte Esterase 75 A Urine RBC 3 H Urine WBC 22 H Ur Squamous Epith Cells 8 H Amorphous Crystals Mod A Urine Bacteria Few A Meds: Medications Albuterol Sulfate (Ventolin) 2.5 mg NEB Q2HP PRN PRN Reason: Shortness Of Breath Bisacodyl (Dulcolax) 10 mg NE HSP PRN PRN Reason: Constipation Ceftriaxone Sodium (Rocephin) 1 gm IV DAILY [facility] Last Admin: 12/10/17 09:42 Dose: 1 gm Diazepam (Valium) 2 mg PO Q4HP PRN PRN Reason: Spasms Fentanyl (Duragesic) 25 mcg TOPICAL Q72H [facility] Potassium Chloride 40 meq/ (Dextrose) 520 mls @ 130 mls/hr IV UD PRN PRN Reason: K+ = or < 3.5 Magnesium Sulfate (Magnesium Sulfate) 2 gm in 50 mls @ 50 mls/hr IV UD PRN PRN Reason: Mag < or = 1.7 Sodium Chloride (Sodium Chloride 0.9%) 1,000 mls @ 35 mls/hr IV .Q24H [facility] Last Admin: 12/09/17 19:33 Dose: 35 mls/hr Lorazepam (Ativan) 1 - 2 mg IV Q2HP PRN PRN Reason: Anxiety/Spasms. Last Admin: 12/10/17 09:42 Dose: 1 mg Methocarbamol (Robaxin) 750 mg IV Q6HP PRN PRN Reason: Muscle Spasm Last Admin: 12/10/17 03:59 Dose: 750 mg Morphine Sulfate (Morphine) 4 mg IV Q1HP PRN PRN Reason: pain/ anxiety Last Admin: 12/10/17 11:39 Dose: 4 mg Ondansetron HCl (Zofran) 4 mg IV Q6HP PRN PRN Reason: Nausea And Vomiting Sodium Chloride (Saline Flush) 10 ml IV Q8 [facility] Last Admin: 12/10/17 05:55 Dose: Not Given Medical - PN: A/P - Time Spent With Patient Total time spent is greater than 50% in coordination of care (as documented) at patient's floor/unit and/or counseling patient: 15 - 24 minutes - Narrative A/P Narrative: A/P * Hip fracture- postop day 2. Pain well controlled * Dementia: at baseline with no acute agitation * Comfort care goals:continue comfort measures/as needed opioids/anxiolytics/ antispasmodics. continue morphine and Ativan and fentanyl. Plan * continue aggressive pain and symptom management on morphine and Ativan and fentanyl as needed * discharge planning per case management
[2017-12-10] MEDS: 0.9 % SODIUM CHLORIDE 1,000 ML IV SCH (18:58)
[2017-12-11] MEDS: LORazepam 2 MG/ML VIAL IV PRN ×5 (00:36→13:34)
[2017-12-11] MEDS: 0.9 % SODIUM CHLORIDE 10 ML SYRINGE IV SCH (05:06)
[2017-12-11 05:51] LABS: ALT/SGPT 8 U/l (0-40); Alkaline Phosphatase 79 U/L (39-117); Bilirubin,Direct < 0.2 mg/dL (0.0-0.3); Blood Urea Nitrogen 12 mg/dl (8-23); Gamma Glutamyl Transpeptidase 6 U/L (5-36); Uric Acid 4.5 mg/dL (2.5-8.0)
--- NOTE | 2017-12-11 08:29 | Operative Note ---
DATE OF OPERATION: 12/08/2017 PREOPERATIVE DIAGNOSIS: Left hip fracture, transcervical femoral neck. POSTOPERATIVE DIAGNOSIS: Left hip fracture, transcervical femoral neck. OPERATION PROPOSED: Left hip hemiarthroplasty. OPERATION PERFORMED: Same. OPERATING SURGEON: Keny Alvarez MD FIRST: Woodrow Carter PA-C INDICATIONS: This is an elderly lady with a displaced femoral neck fracture who has had unacceptable pain. We have elected to proceed with a hemiarthroplasty. OPERATION IN DETAIL: Informed consent was obtained. She was taken to the operating where she was provided with appropriate anesthetic and prophylactic antibiotics. She was carefully positioned. Her hip was prepped sterilely. A standard posterior approach to the hip was performed. I dissected through the iliotibial band. I cut and released short external rotators. The hip capsule was cut and T'd. I then refined the femoral neck cut. This left a napkin ring of bone that was removed. I engaged the femoral head with a corkscrew. This was removed and I sized the femoral head at 47 mm. I then turned my attention to the proximal femur where I sequentially reamed and broached. I impacted a size 6 [place] femoral stem from [employer]. A -3 head and neck component was reduced into position. The wounds were irrigated extensively. I closed the hip capsule with a Ticron. #1 Vicryl was used in the iliotibial band and a Stratafix suture, 2-0 inverted deep dermal, and tiffany in the skin. The procedure was tolerated well. No complications. Estimated blood loss is 75 mL. [email or web address] Job ID: [id number] Doc ID: [id number] Keny Alavrez MD
[2017-12-11] MEDS ORDERED: fentaNYL 100 MCG PATCH TOPICAL SCH (10:00)
[2017-12-11] MEDS ORDERED: fentaNYL 25 MCG PATCH TOPICAL SCH (11:00)
[2017-12-11] MEDS: METHOCARBAMOL 1,000 MG/10 ML VIAL IV PRN (11:14)
[2017-12-11] MEDS: cefTRIAXone 1 GM VIAL IV SCH (11:47)
--- NOTE | 2017-12-11 12:35 | Discharge Summary ---
Medical - DS: Prov Patient information: Note initiated : 12/11/17 at 12:31 pm Service Date, if different from initiated Date: [] Patient: Heather Ac 72 y/o F admitted on 12/07/17 for Pain in Left Hip/Hip Fracture. Chief Complaint: [] Date of admission: 12/07/17 22:42 Discharge date: 12/11/17 Primary care physician: Heladio Diaz Consults: 12/07/17 21:55 Consult to Physician [CONS] Stat Comment: Consulting Provider: Keny Alejandra Reason For Exam: Physician to Consult 12/07/17 21:56 Consult to Physician [CONS] Stat Comment: Consulting Provider: Minesh Saenz Reason For Exam: Physician to Consult Medical - DS: Meds - Discharge Medications Prescriptions: fentaNYL [Duragesic] 100 mcg TOPICAL Q72H #7 patch LORazepam [Lorazepam Intensol] 2 mg PO Q4H PRN #30 ml PRN Reason: Anxiety Methocarbamol [Robaxin] 750 mg PO QIDP PRN #30 tab PRN Reason: Spasms morphine 10 mg PO Q2HP PRN #20 oral.conc PRN Reason: Anxiety morphine 4 mg IV Q2-4HP PRN 10 Days #10 syringe PRN Reason: pain/ anxiety Active and Home Medications: Home Medications docusate sodium 100 mg capsule 100 mg PO QDAY PRN #30 cap 11/05/15 [Rx Confirmed 12/08/17 Last Taken 12/07/17 07:58] acetaminophen 325 mg tablet 1 tab PO Q12HP PRN 02/17/17 [History Confirmed 12/08 Last Taken 11/30/17 11:02] dabigatran etexilate 150 mg capsule 150 mg PO BID 02/17/17 [History Confirmed Last Taken 12/07/17 18:37] Acetaminophen [Acetaminophen ER] 650 mg PO BID 12/08/17 [History Confirmed 12/08 Last Taken 12/07/17 18:37] Baclofen 10 mg PO Q8HP PRN 12/08/17 [History Confirmed 12/08/17 Last Taken 12/07 18:37] Bisacodyl [Dulcolax] 10 mg MO DAILYP PRN 12/08/17 [History Confirmed 12/08/17 Last Taken 10/24/17 04:10] Magnesium Hydroxide [Milk of Magnesia] 30 ml PO QDAYPC 12/08/17 [History Confirmed 12/08/17 Last Taken 12/05/17 09:10] Na Phos,M-B/Na Phos,Di-Ba [Fleets Adult] 1 dose MO PRN PRN 12/08/17 [History Confirmed 12/08/17 Last Taken 10/09/17 08:40] Polyethylene Glycol 3350 See Label Instructions PO QHS 12/08/17 [History Confirmed 12/08/17 Last Taken 12/06/17 18:54] QUEtiapine FUMARATE [Seroquel] 25 mg PO QAM 12/08/17 [History Confirmed Last Taken 12/07/17 07:58] QUEtiapine [Seroquel] 50 mg PO QHS 12/08/17 [History Confirmed 12/08/17 Last Taken 12/06/17 20:09] diphenhydrAMINE HCL [Benadryl] 25 mg PO Q6HP PRN 12/08/17 [History Confirmed 06/19 Last Taken 12/07/17 18:37] morphine SULFATE [Morphine Sulfate] 2.5 - 5 mg PO Q4HP PRN 12/08/17 [History Confirmed 12/08/17 Last Taken 12/07/17 18:37] traZODone HCL [Trazodone HCl] 100 mg PO QHS 12/08/17 [History Confirmed Last Taken 11/21/17 20:59] LORazepam [Lorazepam Intensol] 2 mg PO Q4H PRN #30 ml 12/11/17 [Rx Last Taken Unknown] Methocarbamol [Robaxin] 750 mg PO QIDP PRN #30 tab 12/11/17 [Rx Last Taken Unknown] fentaNYL [Duragesic] 100 mcg TOPICAL Q72H #7 patch 12/11/17 [Rx Last Taken Unknown] morphine 4 mg IV Q2-4HP PRN 10 Days #10 syringe 12/11/17 [Rx Last Taken Unknown] morphine 10 mg PO Q2HP PRN #20 oral.conc 12/11/17 [Rx Last Taken Unknown] Medical - DS: Hosp Hospital course: Discharge diagnosis * Hip fracture- postop day 3. Pain well controlled.discharging to SNF with hospice * Dementia: at baseline with no acute agitation * Comfort care goals:continue comfort measures/as needed opioids/anxiolytics/ antispasmodics. continue morphine and Ativan and fentanyl. BRIEF HOSPITAL COURSE Pt demented, obtunded, unable to provide any history Pt son and daughter are present at the bedside, they provided most of the history, the patient has been a group home resident, for dementia. She was on multiple medications for behavioral control in the past. Most of the medications were stopped according to the children. The patient's mental status improved after the medications were stopped. However she still had poor memory, and the poor quality of life. 3 months ago the patient has been walking with a limp onto the left side. or the last 2 months, patient has not been moving much. The patient has been in severe pain over the last 2 weeks, this pain has worsened over the period of one week. When the family saw the patient in distress they brought her to the emergency. in the emergency patient's vital signs were stable, blood work unremarkable, patient UA is abnormal suggestive or UTI. X-ray shows displaced hip fracture. Patient's family son and daughter are not sure if they want to pursue surgery. Patient is bedbound, and they are anticipating that the patient will pass away very soon. Patient needs good pain control. They will talk with the surgeon tomorrow and contemplative they would like to proceed with the procedure for pain management purposes. december 08 Pt seen examined, this AM noted to be in some distress, spasms family seems to have decided to persue surgery for palliative purposes very high risk for periop mortality continue morphine and ativan , methacarbamol for pain, anxiety and muscle spams surgery planned this pm with dr alejandra 12/09-patient on comfort care. No overnight events. No significant pain or spasm or concerns per staff and family 12/10-postoperative day 1. Patient doing well. Pain-free.no overnight events or concerns per staff. No family at bedside. 12/11- patient in significant pain requiring IV morphine. Start Robaxin/ increased fentanyl patch to 100. Discharging to SNF with continued end of life care and palliation with all goals and measures directed towards comfort only. Discharge diagnosis: . - Time Spent with Patient Total time spent providing and/or coordinating discharge services: Greater than 30 minutes Medical - DS: Exam - Constitutional Vitals: Vital Signs Pulse Pulse Ox 12/11/17 03:00 106 H 94 12/10/17 18:45 114 H 95 Intake and Output 12/10/17 12/11/17 12/11/17 21:59 05:59 13:59 Intake Total 785 / 785 Output Total 500 / 500 475 / 475 Balance 285 / 285 -475 / -475 Intake: IV 785 / 785 Sodium Chloride 0.9% 1,000 ml @ 785 / 785 35 mls/hr IV .Q24H JUDITH Rx#: [id number] Oral 0 / 0 Output: Urine Catheter Amount 500 / 500 475 / 475 Medical - DS: Data Labs on day of discharge: Labs from last 24 hours 12/11/17 04:36 Sodium 139 Potassium 3.5 Chloride 104 Carbon Dioxide 22 Anion Gap 13.0 BUN 12 Creatinine 0.6 GFR Calculation 92 Glucose 91 Uric Acid 4.5 Calcium 8.7 Phosphorus 2.2 L Magnesium 1.8 Total Bilirubin 0.5 Direct Bilirubin < 0.2 GGT 6 AST 18 ALT 8 Alkaline Phosphatase 79 Lactate Dehydrogenase 180 Total Protein 6.0 Albumin 3.0 L Globulin 3.0 Albumin/Globulin Ratio 1.0 Triglycerides 92 Medical - DS: A/P - Patient/Caregiver Discharge Instructions Activity: other (activity per comfort) Diet: Regular Diet Additional Instructions: all activity/diet directed towards comfort Prescriptions: fentaNYL [Duragesic] 100 mcg TOPICAL Q72H #7 patch LORazepam [Lorazepam Intensol] 2 mg PO Q4H PRN #30 ml PRN Reason: Anxiety Methocarbamol [Robaxin] 750 mg PO QIDP PRN #30 tab PRN Reason: Spasms morphine 10 mg PO Q2HP PRN #20 oral.conc PRN Reason: Anxiety morphine 4 mg IV Q2-4HP PRN 10 Days #10 syringe PRN Reason: pain/ anxiety - Follow up Plan Follow up with: Heladio Diaz MD [Primary Care Provider] - Disposition: Xfer SNF Prognosis: Critical Rehab Potential: Undetermined I certify that the patient requires SNF services: Yes Overall status at discharge: patient is not back to baseline
== END 2017-12-11 14:10 | DRG 470 ==
LOC: ED 19:22 → MEDSUR 22:42
PROVIDERS: ADMIT Internal Medicine; ATTEND Internal Medicine
PROC: HEMIHIP (2017-12-08 15:35)